=== PATIENT | female | born 1950 | race American Indian/Alaskan Native ===

== ENCOUNTER 2018-08-14 06:50 | Emergency (ER) | payer OTHER ==
--- OUTSIDE RECORDS SUMMARY | 2018-08-14 06:52 | XMS REPORT ---
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
--- OUTSIDE RECORDS SUMMARY | 2018-08-14 06:52 | XMS REPORT | Continuity of Care Document ---
:1950 Author Organization Interface Problems Problem Status Onset Classification Date Comments Source Date Reported N63.12 - Active [facility] U[facility]PECIFIED [address] [place] IN THE RIGHT Medications Medication Details Route Status Patient Ordering Order Source Instructions Provider Date Allergies, Adverse Reactions, Alerts Substance Category Reaction Severity Reaction Status Date Comments Source type Reported Immunizations Immunization Date Given Site Status Last Updated Comments Source Results Order Results Value Reference Date Interpretation Comments Source Name Range Breast Breast 02/11 - [facility] w BX Uni - [place] Clip Clip Primary Primary Side US Side US Read by: Neelima Day MD Dictated Date/time: 02/18/18 15:26 ULTRASOUND GUIDED BIOPSY RIGHT BREAST WITH MARKING DEVICE INSERTED AND POST DIGITAL MAMMOGRAPHIC AND ULTRASOUND IMAGIN02/11/2018 Electronically Signed by: Neelima Day MD 02/18/18 15 :26 FINAL REPORT CLINICAL: 67 yo female presents for ultrasound guided core biopsy of the right breast at 7:00. Diagnostic workup was performed at an outside facility. Comparison: Outside facility ultrasound dated 01/02/18. An ultrasound guided biopsy using real-time ultrasound was performed for the 5 mm nodule located in the right breast at 7:00, 3 cm from the nipple. This was described on the previous ultrasound report. The skin was prepped in the usual manner. Local anesthetic was administered to the access site. A skin dariusz was made in the breast. The abnormality was approached from the lateral aspect. A 12 gau ge biopsy needle was placed adjacent to the abnormality through an introducer device under ultrasound guidance. Once the needle was documented to be in the correct location, multiple specimens were obt ained using Marquee 12 gauge. A coil-shaped clip was inserted into the biopsy cavity. A skin closure strip was applied to the access site. Post procedure digital mammographic and ultrasound imaging w as obtained. The specimens were sent to the laboratory for pathological analysis. IMPRESSION: ULTRASOUND GUIDED BIOPSY BENIGN Ultrasound guided biopsy of the 5 mm nodule in the right breast at 7:00, 3 cm from the nipple was successful with no apparent post procedure complications. 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 Pathology results are concordant with ultrasound findings. RECOMMENDATION: - RIGHT BREAST ULTRASOUND IN 6 MONTHS. - ANNUAL MAMMOGRAM IS DUE 2018. Nurse navigator, Victorina King discussed pathology results and recommendation with the patient on 02/18/18 atr 8:30 AM, under my direction. This exam was interpreted at [id number] for [facility] [employer] [facility]. Neelima Day M.D. dh/:02/18/2018 15:26:38 Bag Printer(s): Nikki Cabrera R.D.M.S, [facility] [employer] letter sent: Post Bx Results Vital Signs Vital Sign Value Date Comments Source Encounters Location Location Encounter Encounter Reason Attending ADM DC Status Source Details Type Number For Provider Date Date Visit Procedures Procedure Code Date Perfomer Comments Source
--- OUTSIDE RECORDS SUMMARY | 2018-08-14 06:53 | XMS REPORT ---
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
--- NOTE | 2018-08-14 07:13 | ER ---
Nurse's Notes [facility] Name: Sarah Bingham Age: 68 yrs Sex: Female : 1950 Arrival Date: 08/14/2018 Time: 06:53 Bed 20 Private MD: Camille Esquivel Diagnosis: Cellulitis of back [any part except buttock] Presentation: 08/14 07:10 Presenting complaint: Patient states: possible infection in right upper back, had a em cyst removed 2 weeks ago, sutures in place, drainage noted, mild redness noted around site, denies fever. Transition of care: patient was not received from another setting of care. Onset of symptoms was August 07, 2018. Risk Assessment: Do you want to hurt yourself or someone else? Patient reports no desire to harm self or others. Initial Sepsis Screen: Does the patient meet any 2 criteria? No. Patient's initial sepsis screen is negative. Does the patient have a suspected source of infection? Yes: Skin breakdown/wound. Care prior to arrival: None. 07:10 Method Of Arrival: Ambulatory em 07:16 Acuity: OGLA 4 iw Triage Assessment: 07:14 General: Appears in no apparent distress. comfortable, Behavior is calm, cooperative. em Pain: Denies pain. Historical: - Allergies: 07:14 Clindamycin; em - Home Meds: 07:14 None [Active]; em - PMHx: 07:14 None; em - PSHx: 07:14 None; em - Immunization history:: Last tetanus immunization: < 10 years ago Flu vaccine is not up to date. - Social history:: Patient/guardian denies using alcohol, street drugs, The patient lives with family, Smoking status: Patient/guardian denies using tobacco. - Family history:: not pertinent. - Ebola Screening: : Patient negative for fever greater than or equal to 101.5 degrees Fahrenheit, and additional compatible Ebola Virus Disease symptoms Patient denies exposure to infectious person Patient denies travel to an Ebola-affected area in the 21 days before illness onset No symptoms or risks identified at this time. Screenin:15 Abuse screen: Denies threats or abuse. Nutritional screening: No deficits noted. em Tuberculosis screening: No symptoms or risk factors identified. Fall Risk None identified. Assessment: 07:14 General: Appears in no apparent distress. comfortable, Behavior is calm, cooperative, em Denies fever. Pain: Denies pain. Neuro: Level of Consciousness is awake, alert, obeys commands, Oriented to person, place, time, situation. Cardiovascular: Capillary refill < 3 seconds Patient's skin is warm and dry. Respiratory: Airway is patent Respiratory effort is even, unlabored, Respiratory pattern is regular, symmetrical. Derm: Skin is intact, is healthy with good turgor, Skin is pink, warm \T\ dry. Skin temperature is warm Wound noted right scapular area. Musculoskeletal: Capillary refill < 3 seconds, Range of motion: intact in all extremities. 07:20 Reassessment: Patient appears in no apparent distress at this time. I agree with above iw assessment by Nabil Aquino LVN. Vital Signs: 07:14 BP 171 / 78; Pulse 81; Resp 18; Temp 98.0(O); Pulse Ox 98% on R/A; Weight 58.97 kg; em Height 5 ft. 2 in. (157.48 cm); Pain 0/10; 07:14 Body Mass Index 23.78 (58.97 kg, 157.48 cm) em ED Course: 06:53 Patient arrived in ED. do 06:54 Camille Esquivel MD is Private Physician. do 06:59 Nabil Aquino LVN is Primary Nurse. em 07:09 Lilian Randle MD is Attending Physician. ma2 07:14 Arm band placed on. em 07:15 Patient has correct armband on for positive identification. Bed in low position. Call em light in reach. Adult w/ patient. 07:16 Triage completed. iw 07:20 No provider procedures requiring assistance completed. Patient did not have IV access em during this emergency room visit. Administered Medications: No medications were administered Outcome: 07:12 Discharge ordered by . ma2 07:20 Discharged to home ambulatory, with family. em 07:20 Condition: good 07:20 Discharge instructions given to patient, Instructed on discharge instructions, follow up and referral plans. medication usage, Demonstrated understanding of instructions, follow-up care, medications, Prescriptions given X 1. 07:21 Patient left the ED. em Signatures: Nabil Aquino LVN LVN em Cammie Hopkins, KERVIN RN Kimber Drake Mohammad, MD MD ma2 Corrections: (The following items were deleted from the chart) 07:17 07:16 Acuity: OLGA 3 iw iw
--- NOTE | 2018-08-14 07:13 | EDPHYS ---
Physician Documentation [facility] Name: Sarah Bingham Age: 68 yrs Sex: Female : 1950 Arrival Date: 08/14/2018 Time: 06:53 Bed 20 Private MD: Camille Esquivel ED Physician Lilian Randle HPI: 08/14 07:10 This 68 yrs old Other Female presents to ER via Unassigned with complaints of Wound ma2 Infection. 07:10 Associated signs and symptoms: Pertinent negatives: apnea, auditory hallucinations, ma2 depression, diarrhea, incontinence. Severity of symptoms: At their worst the symptoms were mild in the emergency department the symptoms are unchanged. The patient has not experienced similar symptoms in the past. Historical: - Allergies: 07:14 Clindamycin; em - Home Meds: 07:14 None [Active]; em - PMHx: 07:14 None; em - PSHx: 07:14 None; em - Immunization history:: Last tetanus immunization: < 10 years ago Flu vaccine is not up to date. - Social history:: Patient/guardian denies using alcohol, street drugs, The patient lives with family, Smoking status: Patient/guardian denies using tobacco. - Family history:: not pertinent. - Ebola Screening: : Patient negative for fever greater than or equal to 101.5 degrees Fahrenheit, and additional compatible Ebola Virus Disease symptoms Patient denies exposure to infectious person Patient denies travel to an Ebola-affected area in the 21 days before illness onset No symptoms or risks identified at this time. ROS: 07:10 Constitutional: Negative for fever, chills, and weight loss, Cardiovascular: Negative ma2 for chest pain, palpitations, and edema, Respiratory: Negative for shortness of breath, cough, wheezing, and pleuritic chest pain, Abdomen/GI: Negative for abdominal pain, nausea, diarrhea, and constipation, MS/Extremity: Negative for injury and deformity, Allergy/Immunology: Negative for hives, rash, and allergies. 07:10 Skin: Positive for cellulitis, Negative for ecchymosis, hematoma, swelling, ulceration, acute changes. 07:10 All other systems are negative. Exam: 07:10 Constitutional: This is a well developed, well nourished patient who is awake, alert, ma2 and in no acute distress. 07:10 Chest/axilla: Normal chest wall appearance and motion. Nontender with no deformity. No lesions are appreciated. Cardiovascular: Regular rate and rhythm with a normal S1 and S2. No gallops, murmurs, or rubs. Normal PMI, no JVD. No pulse deficits. Respiratory: Lungs have equal breath sounds bilaterally, clear to auscultation and percussion. No rales, rhonchi or wheezes noted. No increased work of breathing, no retractions or nasal flaring. Abdomen/GI: Soft, non-tender, with normal bowel sounds. No distension or tympany. No guarding or rebound. No evidence of tenderness throughout. 07:10 Skin: cellulitis, that is mild, induration, that is mild is noted, no abscess. Vital Signs: 07:14 BP 171 / 78; Pulse 81; Resp 18; Temp 98.0(O); Pulse Ox 98% on R/A; Weight 58.97 kg; em Height 5 ft. 2 in. (157.48 cm); Pain 0/10; 07:14 Body Mass Index 23.78 (58.97 kg, 157.48 cm) em MDM: 07:09 Patient medically screened. ma2 07:10 Differential diagnosis: cellulitis no abscess, she will see her surgeon in 2 dys for ma2 sutures removal. Data reviewed: vital signs, nurses notes. Counseling: I had a detailed discussion with the patient and/or guardian regarding: the historical points, exam findings, and any diagnostic results supporting the discharge/admit diagnosis, the presence of at least one elevated blood pressure reading (>120/80) during this emergency department visit, the need for outpatient follow up. Administered Medications: No medications were administered Disposition: 08/14/18 07:12 Discharged to Home. Impression: Cellulitis of back [any part except buttock]. - Condition is Stable. - Discharge Instructions: Cellulitis, Adult. - Prescriptions for Bactrim DS 800- 160 mg Oral Tablet - take 1 tablet by ORAL route every 12 hours for 5 days; 16 tablet. - Medication Reconciliation Form, Thank You Letter, Antibiotic Education, Prescription Opioid Use form. - Follow up: Private Physician; When: Tomorrow; Reason: Continuance of care. Signatures: Nabil Aquino LVN LVN em Lilian Randle MD MD ma2 Corrections: (The following items were deleted from the chart) 07:21 07:12 08/14/2018 07:12 Discharged to Home. Impression: Cellulitis of back [any part em except buttock]. Condition is Stable. Forms are Medication Reconciliation Form, Thank You Letter, Antibiotic Education, Prescription Opioid Use. Follow up: Private Physician; When: Tomorrow; Reason: Continuance of care. ma2
== END 2018-08-14 07:21 | disposition home or self-care (01) ==
LOC: ER 06:50
DX: L03.312 Cellulitis of back [any part except buttock and flank] (principal); Z88.3 Allergy status to other anti-infective agents
CPT/HCPCS: 99282